=== PATIENT | female | born 1935 | race Caucasian/White ===

== ENCOUNTER 2016-10-02 14:49 | Emergency (ER) | payer MEDICARE ==
[2016-03-01 14:22] VITALS: BMI 17.7
[~2016-10-02 14:49] MED LIST: AUGMENTIN 875-11 TAB PO; BREO ELLIPTA 11 EACH INH; CARBATROL 200200 MG PO; CELEXA20 MG PO; LASIX20 MG PO; LISINOPRIL10 MG PO; NICODERM C1 PATCH .1 TD; POTASSIUM CHLO10 ME1 PO; PROVENTIL HFA6.7 GM INH; ROBAXIN500 MG PO; SPIRIVA18 MCG; VITAMIN D2000 UNIT PO; ZESTRIL10 MG PO; ZOSTAVAX SQ; ZOSTRIX56.6 GM TP; ZYPREXA5 MG PO
== END 2016-10-02 16:28 | disposition home or self-care (01) ==
LOC: D.ER 14:49
DX: T24.002A Burn of unspecified degree of unspecified site of left lower limb, except ankle and foot, initial encounter (principal); T24.001A Burn of unspecified degree of unspecified site of right lower limb, except ankle and foot, initial encounter; X08.8XXA Exposure to other specified smoke, fire and flames, initial encounter; Y93.89 Activity, other specified; Y92.019 Unspecified place in single-family (private) house as the place of occurrence of the external cause; J44.9 Chronic obstructive pulmonary disease, unspecified; F32.9 Major depressive disorder, single episode, unspecified; I10 Essential (primary) hypertension; E87.1 Hypo-osmolality and hyponatremia; C44.90 Unspecified malignant neoplasm of skin, unspecified; F17.200 Nicotine dependence, unspecified, uncomplicated

== ENCOUNTER → 2017-05-16 16:25 | Outpatient (CLI) | payer MEDICARE ==
[2016-03-01 14:22] VITALS: BMI 17.7
[2017-05-16 19:03] LABS: INR 0.89 (0.85-1.17); PROTIME 11.8 SECONDS (11.6-15.0)
== END | disposition home or self-care (01) ==
LOC: D.LABREF 16:25
PROVIDERS: Family Medicine
DX: S72.011A Unspecified intracapsular fracture of right femur, initial encounter for closed fracture (principal); X58.XXXA Exposure to other specified factors, initial encounter; Y93.89 Activity, other specified; Y92.029 Unspecified place in mobile home as the place of occurrence of the external cause